=== PATIENT | male | born 1965 | race Caucasian/White ===

== ENCOUNTER 2016-10-12 06:17 | Emergency (ER) | payer OTHER ==
[~2016-10-12] VITALS: Ht 165.1 cm; Wt 76.0 kg
[~2016-10-12 06:17] MED LIST: BACTDS PO; FER325 PO; HYDR-3498 PO; METF500T4 PO; MUPI22OI2 TOP; OFLO5DRO7 RIGHT EAR; PANT40TA4 PO; TAMS-14 PO
[2016-10-12 06:30] VITALS: Ht 165.1 cm; Wt 76.0 kg
[2016-10-12] MEDS ORDERED: KETOROLAC 30 MG INJ IM STA (07:07)
--- NOTE | 2016-10-12 09:30 | RADRPT ---
PROCEDURE: XR Chest. CLINICAL INDICATION: Shortness of breath TECHNIQUE: Single PA upright chest COMPARISON: None. FINDINGS: The cardiomediastinal silhouette is within normal limits of size ..The lungs are clear without pleur al effusion or focal consolidation. No pneumothorax. The osseous structures and soft tissues are unr emarkable. IMPRESSION: 1. No evidence for active cardiopulmonary disease. RPTAT:AAJJ Physician Myrna Date Time Electronically viewed and signed by Raysa Hein Physician on 10/12/2016 09:30 MANDO/
--- NOTE | 2016-10-12 09:31 | RADRPT ---
PROCEDURE: XR Lumbar Spine. CLINICAL INDICATION: Back pain. TECHNIQUE: AP, lateral and cone-down lateral view of the lumbar spine were obtained. COMPARISON: No prior studies are available for comparison. FINDINGS: There is normal vertebral mineralization and alignment. No fracture or subluxation is seen. The disc spaces are normal in appearance. The posterior elements are unremarkable 5 [id number] vertebra e. The soft tissues appear normal. IMPRESSION: Unremarkable lumbar spine. RPTAT:AAJJ Raysa Hein Physician Date Time Electronically viewed and signed by Physician Myrna on 10/12/2016 09:30 MANDO/
--- NOTE | 2016-10-12 09:32 | RADRPT ---
PROCEDURE: XR thoracic Spine. CLINICAL INDICATION: Mid back pain. TECHNIQUE: AP, lateral and swimmer's views of the thoracic spine were obtained. COMPARISON: No prior studies are available for comparison. FINDINGS: There is normal vertebral mineralization and alignment. Mild levoscoliosis of the mid thoracic spine with apex at T8-T9. No acute fracture or subluxation is seen. The disc spaces are normal in appearance. The posterior elements are unremarkable. The soft tissues appear normal. IMPRESSION: Mild levoscoliosis of the mid thoracic spine centered at T8-T9, otherwise, unremarkable thoracic spi ne x-rays series. RPTAT:AAJJ Physician Myrna Date Time Electronically viewed and signed by Physician Myrna on 10/12/2016 09:32 MANDO/
[2016-10-12] MEDS ORDERED: HYDR-906 PO (09:40)
[2016-10-12] MEDS ORDERED: ORPH100T PO (09:41)
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
[2016-10-12 12:14] VITALS: BP 128/74; PULSE 77; RESP 18
== END 2016-10-12 12:15 | disposition home or self-care (01) ==
LOC: FTE 06:17
DX: S29.9XXA Unspecified injury of thorax, initial encounter (principal); F17.210 Nicotine dependence, cigarettes, uncomplicated; E11.9 Type 2 diabetes mellitus without complications; V58.6XXA Passenger in pick-up truck or van injured in noncollision transport accident in traffic accident, initial encounter; Z79.84 Long term (current) use of oral hypoglycemic drugs
CPT/HCPCS: 71010; 72072; 72100; 96372; J1885; Z7502

== ENCOUNTER 2016-12-18 20:09 | Emergency (ER) | payer OTHER ==
[~2016-12-18] VITALS: Ht 160 cm; Wt 75.5 kg
[~2016-12-18 20:09] MED LIST changes: +HYDR-906 PO; +ORPH100T PO
[2016-12-18 20:30] VITALS: Ht 160 cm; Wt 75.5 kg
[2016-12-18] MEDS ORDERED: LIDOCAINE 2% (MDV) 20 ML INJ INJ STA (21:33)
[2016-12-18] MEDS ORDERED: morphine 10 MG INJ IM STA (21:33)
[2016-12-18] MEDS ORDERED: ONDANSETRON 4 MG INJ IM STA (21:33)
[2016-12-18] MEDS ORDERED: CEPHALEXIN 500 MG CAP PO STA (22:44)
[2016-12-18] MEDS ORDERED: CEPH-443 PO (23:25)
--- NOTE | 2016-12-18 23:39 | ERD ---
ER Documentation Chief Complaint Date/Time DATE: 12/18/16 TIME: 23:30 Chief Complaint left thumb laceration with knife x 30 minutes ago HPI This is a 51-year-old male with history of diabetes type 2 on metformin presenting to the emergency department with a deep laceration to the left thumb that occurred 60 minutes prior to being seen due to a kitchen knife. Patient admits to having active bleeding, he states the pain is moderate in severity. Patient states that he has a ring around his left thumb that he is unable to get off as well. Patient states that his tetanus shot was updated a year ago. ROS All systems reviewed and are negative except as per history of present illness. Medications Home Meds Active Scripts Cephalexin* (Keflex*) 500 Mg Capsule, 500 MG PO QID for 10 Days, CAP Prov:GABI RAMIRES PA-C 12/18/16 Orphenadrine Citrate (Norflex) 100 Mg Tablet.sa, 100 MG PO BID for 7 Days, TAB.SA Prov:SHELLY BERNAL PA-C 10/12/16 Hydrocodone/Acetaminophen ([place] 5-325 Tablet) 1 Each Tablet, 1 TAB PO Q6H Y for PAIN, #7 TAB Prov:SHELLY BERNAL PA-C 10/12/16 Ofloxacin* (Floxin* Otic) 0.3% -10 Ml Soln, 4 DROP RIGHT EAR BID, #10 BOTTLE Prov:CLARA WINTER PA-C 04/16/15 Mupirocin* (Bactroban*) 2% -22 Gram Oint...g., 1 APPLIC TOP BID, #30 TUB SITE OF APPLICATION: Prov:CLARA WINTER PA-C 04/16/15 Sulfamethoxazole-Trimethoprim* (Bactrim* DS) 800-160 Mg Tab, 1 TAB PO BID for 10 Days, TAB Prov:BRITTON PAGE 04/21/14 Tamsulosin Hcl* (Flomax*) 0.4 Mg Capsr, 0.4 MG PO HS for 30 Days Prov:BRITTON PAGE 04/21/14 Pantoprazole (Protonix) 40 Mg Tabec, 40 MG PO DAILY@06 for 30 Days Prov:BRITTON PAGE 04/21/14 Hydrocodone Bit/Acetaminophen (Anexsia 5-325 Mg Tablet) 1 Tab Tab, 1 TAB PO Q6H Y for MODERATE PAIN LEVEL 4-6, #20 Prov:BRITTON PAGE F. 04/21/14 Ferrous Sulfate* (Ferrous Sulfate*) 325 Mg Tabec, 325 MG PO BID for 30 Days Prov:BRITTON PAGE. 04/21/14 Reported Medications Metformin* (Glucophage*) 500 Mg Tab, 500 MG PO WITH BREAKFAST, TAB 04/16/14 Allergies Allergies: Coded Allergies: No Known Drug Allergies (Verified Allergy, Unknown, 12/18/16) Uncoded Allergies: NONE (Allergy, Unknown, 11/08/13) PMhx/Soc History of Surgery: Yes (Appendectomy, right arm surgery) Anesthesia Reaction: No Hx Neurological Disorder: No Hx Respiratory Disorders: No Hx Cardiac Disorders: No Hx Psychiatric Problems: No Hx Miscellaneous Medical Probl: Yes (Heroin drug abuse) Hx Alcohol Use: No Hx Substance Use: No Hx Tobacco Use: Yes (7 cigarettes a day) Smoking Status: Never smoker Physical Exam Vitals Vital Signs Date Time Temp Pulse Resp B/P Pulse Ox O2 Delivery O2 Flow Rate FiO2 12/18/16 20:30 98.7 95 20 169/90 97 Physical Exam General: WD/WN, in no apparent distress, non-toxic appearing HENT: NC/AT Eyes: Conjunctiva normal Neck: Supple Pulm: Normal labored breathing CV: Good capillary refill GI: Non-distended, no guarding Back: No masses Ext: No clubbing, cyanosis, or edema Neuro: Moves on all fours, no neuro deficits, sensation intact Skin: 3cm flap laceration on the left volar thumb with active bleeding. NO FB, tendon, or arterial involvement ring present Psych: Normal mood Results 24 hrs Current Medications Medications (Trade) Dose Ordered Sig/Fabien Route PRN Reason Start Time Stop Time Status Last Admin Dose Admin Morphine Sulfate (morphine) 6 mg ONCE STAT IM 12/18/16 21:33 12/18/16 21:34 DC 12/18/16 21:54 Ondansetron HCl (Zofran Inj) 4 mg ONCE STAT IM 12/18/16 21:33 12/18/16 21:34 DC 12/18/16 21:53 Lidocaine (Xylocaine 2% (Mdv) 20 ml) 20 ml ONCE STAT INJ 12/18/16 21:33 12/18/16 21:34 DC Cephalexin (Keflex) 500 mg ONCE STAT PO 12/18/16 22:44 12/18/16 22:45 DC 12/18/16 22:56 Procedures/MDM This is a 51-year-old male with history of diabetes type 2 on metformin presenting to the emergency department with a laceration to the left thumb that occurred 60 minutes prior to being seen due to a kitchen knife. States last tetanus shot was updated a year ago. Patient has 3cm flap laceration on the left volar thumb with active bleeding. There was no evidence of any foreign body, arterial, tendon involvement. No evidence of any fracture dislocation. Patient had a ring present at the proximal base that I was unable to remove due to the swelling. Since the ring was present, I was unable to do a digital block. Procedure below. After wound was approximated, technicians have successfully removed the ring with a ring cutter. I have reexamined the patient and he is neurovascular intact pre-and post treatment. A metal splint was applied and I have discussed with him to follow-up with hand specialist or return to this facility in 2 days for wound check. In the ED patient was given Keflex for prophylaxis and a prescription for outpatient. Discussed return to the ER for any worsening signs or symptoms. Patient understands and agrees with this plan. Patient stable for discharge for home PROCEDURE NOTE: Consent was obtained. Patient was positioned appropriately. Copious amount of normal saline was used for irrigation. Wound was cleansed with Betadine. Approximately 2cc of lidocaine without epinephrine was used as a local anesthetic. Patient was sterile draped with wound exposed. Wound was closed with good approximation with 12 x 4-0 Ethilon simple interrupted sutures. Wound dressed with bacitracin and sterile gauze. Departure Diagnosis: Primary Impression: Laceration Additional Impression: Thumb injury Condition: Fair Patient Instructions: Laceration, Hand Additional Instructions: Return to this facility in 2 days for wound check. Take all medicines as directed. Follow up with your physician to remove the stitches in 10-12 days Return to this facility if you are not improving as expected. GABI RAMIRES PA-C December 18, 2016 23:39
[2016-12-18 23:55] VITALS: BP 120/70; PULSE 64; RESP 16; TEMP 98.7
== END 2016-12-18 23:56 | disposition home or self-care (01) ==
LOC: FTE 20:09
DX: S61.012A Laceration without foreign body of left thumb without damage to nail, initial encounter (principal); F17.210 Nicotine dependence, cigarettes, uncomplicated; E11.9 Type 2 diabetes mellitus without complications; W26.0XXA Contact with knife, initial encounter; Y92.9 Unspecified place or not applicable; Z79.84 Long term (current) use of oral hypoglycemic drugs
CPT/HCPCS: 12002; 96372; J2270; J2405; Z7502; Z7610

== ENCOUNTER 2017-03-27 03:24 | Emergency (ER) | payer OTHER ==
[~2017-03-27] VITALS: Ht 162.6 cm; Wt 72.7 kg
[~2017-03-27 03:24] MED LIST changes: +CEPH-443 PO
[2017-03-27 03:27] VITALS: Ht 162.6 cm; Wt 72.7 kg
[2017-03-27] MEDS ORDERED: CEPH-443 PO (04:00)
[2017-03-27] MEDS ORDERED: SULF1TAB31 PO (04:00)
[2017-03-27] MEDS ORDERED: HYDR-3011 PO (04:00)
[2017-03-27] MEDS ORDERED: TRIA15CR55 TOP (04:00)
[2017-03-27] MEDS ORDERED: IBUP-1542 PO (04:00)
--- NOTE | 2017-03-27 04:19 | ERD ---
ER Documentation Chief Complaint Date/Time DATE: 03/27/17 TIME: 04:16 Chief Complaint WOUND TO LEFT ARM AND RIGHT SIDE FACE. HPI 52-year-old male presents in emergency department for wounds on the upper extremities in the facial area, skin scratching on it. Patient has history of psoriasis. Patient has been scratching on affected area, noted some redness surrounding the area open wounds. Patient does not have any fever or chills. Patient is diabetic. Patient does not have any numbness or tingling. ROS All systems reviewed and are negative except as per history of present illness. Medications Home Meds Active Scripts Triamcinolone Acetonide (Triamcinolone Acetonide) 0.1% - 15 Gm Cream.gm., 1 APPLIC TOP BID, #1 TUB Prov:RUBY REIS NP 03/27/17 Hydroxyzine Hcl* (Hydroxyzine Hcl*) 25 Mg Tablet, 25 MG PO Q8H Y for ITCHING, # 30 TAB Prov:RUBY REIS NP 03/27/17 Ibuprofen* (Motrin*) 600 Mg Tab, 600 MG PO Q6H Y for PAIN AND OR ELEVATED TEMP, #30 TAB Prov:RUBY REIS NP 03/27/17 Cephalexin* (Keflex*) 500 Mg Capsule, 500 MG PO QID for 10 Days, CAP Prov:RUBY REIS NP 03/27/17 Sulfamethoxazole/Trimethoprim* (Bactrim Ds* Tablet) 1 Each Tablet, 1 TAB PO BID , #20 TAB Prov:RUBY REIS NP 03/27/17 Cephalexin* (Keflex*) 500 Mg Capsule, 500 MG PO QID for 10 Days, CAP Prov:GABI RAMIRES PA-C 12/18/16 Orphenadrine Citrate (Norflex) 100 Mg Tablet.sa, 100 MG PO BID for 7 Days, TAB.SA Prov:SHELLY BERNAL PA-C 10/12/16 Hydrocodone/Acetaminophen ([place] 5-325 Tablet) 1 Each Tablet, 1 TAB PO Q6H Y for PAIN, #7 TAB Prov:SHELLY BERNAL PA-C 10/12/16 Ofloxacin* (Floxin* Otic) 0.3% -10 Ml Soln, 4 DROP RIGHT EAR BID, #10 BOTTLE Prov:CLARA WINTER PA-C 04/16/15 Mupirocin* (Bactroban*) 2% -22 Gram Oint...g., 1 APPLIC TOP BID, #30 TUB SITE OF APPLICATION: Prov:CLARA WINTER PA-C 04/16/15 Sulfamethoxazole-Trimethoprim* (Bactrim* DS) 800-160 Mg Tab, 1 TAB PO BID for 10 Days, TAB Prov:CAMILOBRITTON F. 04/21/14 Tamsulosin Hcl* (Flomax*) 0.4 Mg Capsr, 0.4 MG PO HS for 30 Days Prov:COSMOERICKSONBRITTON FDavid 04/21/14 Pantoprazole (Protonix) 40 Mg Tabec, 40 MG PO DAILY@06 for 30 Days Prov:BRITTON PAGE F. 04/21/14 Hydrocodone Bit/Acetaminophen (Anexsia 5-325 Mg Tablet) 1 Tab Tab, 1 TAB PO Q6H Y for MODERATE PAIN LEVEL 4-6, #20 Prov:COSMOERICKSONBRITTON F. 04/21/14 Ferrous Sulfate* (Ferrous Sulfate*) 325 Mg Tabec, 325 MG PO BID for 30 Days Prov:FREIDA PAGEMAD F. 04/21/14 Reported Medications Metformin* (Glucophage*) 500 Mg Tab, 500 MG PO WITH BREAKFAST, TAB 04/16/14 Allergies Allergies: Coded Allergies: No Known Drug Allergies (Verified Allergy, Unknown, 03/27/17) Uncoded Allergies: NONE (Allergy, Unknown, 11/08/13) PMhx/Soc History of Surgery: Yes (Appendectomy, right arm surgery) Anesthesia Reaction: No Hx Neurological Disorder: No Hx Respiratory Disorders: No Hx Cardiac Disorders: No Hx Psychiatric Problems: No Hx Miscellaneous Medical Probl: Yes (DM, HX OF Heroin drug abuse) Hx Alcohol Use: No Hx Substance Use: No Hx Tobacco Use: Yes (1PACK EVERY 3DAYS ) Smoking Status: Current every day smoker FmHx Family History: No coronary disease, No diabetes, No other Physical Exam Vitals Vital Signs Date Time Temp Pulse Resp B/P Pulse Ox O2 Delivery O2 Flow Rate FiO2 03/27/17 03:27 97.4 104 18 158/99 97 Physical Exam GENERAL: The patient is well developed and appropriate for usual state of health, in no apparent distress. CHEST: Clear to auscultation bilaterally. There are no rales, wheezes or rhonchi. HEART: Regular rate and rhythm. No murmurs, clicks, rubs or gallops. No S3 or S4. ABDOMEN: Soft, nontender and nondistended. Good bowel sounds. No rebound or guarding. No gross peritonitis. No gross organomegaly or masses. No Higgins sign or McBurney point tenderness. BACK: No midline or flank tenderness. EXTREMITIES: Equal pulses bilaterally. There is no peripheral clubbing, cyanosis or edema. No focal swelling or erythema. Full range of motion. Grossly neurovascularly intact. NEURO: Alert and oriented. Cranial nerves 2-12 intact. Motor strength in all 4 extremities with 5/5 strength. Sensation grossly intact. Normal speech and gait. SKIN: Open wounds noted in upper extremities and in the neck area, noted mild erythema surrounding the area, no purulent discharge noted, noted plaques. There is no apparent rash or petechia. The skin is warm and dry. HEMATOLOGIC AND LYMPHATIC: There is no evidence of excessive bruising or lymphedema. No gross cervical, axillary, or inguinal lymphadenopathy. Procedures/MDM Medical decision making: Patient symptoms is like is consistent with infected open wounds, most likely from scratching psoriasis area. Patient does not have any symptoms of sepsis. Patient appears well and is hemodynamically stable. Patient does not have any fever. Patient was given Keflex, Bactrim, triamcinolone 1% cream, hydroxyzine, is advised to see flight communications specialist for possible control of his psoriasis. Patient was advised to do wound care of affected area. Recheck with primary care doctor in 2 days. Patient was advised to return to emergency department for any worsening symptoms. Disposition: Home. Stable. Departure Diagnosis: Primary Impression: Infected open wound Condition: Stable Patient Instructions: Wound Care RUBY REIS NP Mar 27, 2017 04:19
== END 2017-03-27 04:22 | disposition home or self-care (01) ==
LOC: FTE 03:24
DX: S41.102A Unspecified open wound of left upper arm, initial encounter (principal); S41.101A Unspecified open wound of right upper arm, initial encounter; L08.9 Local infection of the skin and subcutaneous tissue, unspecified; E11.9 Type 2 diabetes mellitus without complications; F17.210 Nicotine dependence, cigarettes, uncomplicated; S11.90XA Unspecified open wound of unspecified part of neck, initial encounter; X58.XXXA Exposure to other specified factors, initial encounter; Y92.9 Unspecified place or not applicable; Z79.84 Long term (current) use of oral hypoglycemic drugs
CPT/HCPCS: 99284

== ENCOUNTER 2017-07-30 14:04 | Emergency (ER) | payer OTHER ==
[~2017-07-30] VITALS: Ht 167.6 cm; Wt 70.0 kg
[~2017-07-30 14:04] MED LIST changes: +HYDR-3011 PO; +IBUP-1542 PO; +SULF1TAB31 PO; +TRIA15CR55 TOP
[2017-07-30 14:26] VITALS: Ht 167.6 cm; Wt 70.0 kg
[2017-07-30] MEDS ORDERED: TETRACAINE 0.5% 4 ML OPH BOTH EYES ONE (14:30)
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
== END 2017-07-30 14:57 ==
LOC: E/R 14:04
DX: T65.91XA Toxic effect of unspecified substance, accidental (unintentional), initial encounter (principal); E11.9 Type 2 diabetes mellitus without complications; I10 Essential (primary) hypertension; Z79.84 Long term (current) use of oral hypoglycemic drugs
CPT/HCPCS: Z7502; Z7610; 99283

== ENCOUNTER 2017-10-14 15:03 | Emergency (ER) | END 2017-10-14 18:11 | disposition left against medical advice (07) ==